=== PATIENT | female | born 1980 | race Two or more races ===

== ENCOUNTER 2018-03-09 14:57 | Emergency (ER) | payer OTHER ==
[~2018-03-09] VITALS: Ht 167.6 cm; Wt 74.4 kg
[2018-03-09 15:05] VITALS: Ht 167.6 cm; Wt 74.4 kg
[2018-03-09 16:54] VITALS: BP 101/55
== END 2018-03-09 16:54 | disposition home or self-care (01) ==
LOC: ED 14:57
DX: S82.491A Other fracture of shaft of right fibula, initial encounter for closed fracture (principal); Z88.0 Allergy status to penicillin; W18.39XA Other fall on same level, initial encounter; Y93.89 Activity, other specified; Y92.89 Other specified places as the place of occurrence of the external cause; Y99.8 Other external cause status
CPT/HCPCS: J1885